=== PATIENT | female | born 1985 | race Caucasian/White ===

== ENCOUNTER 2018-01-04 07:59 | Day surgery (SDC) | payer OTHER ==
[2018-01-04] MEDS ORDERED: SOD CHLORIDE 0.9% 1,000 ML IV (08:00)
[2018-01-04 08:56] LABS: ADD MAN DIFF? NO
[2018-01-04 09:10] LABS: BASOPHILS % 0.1 % (0.0-2.0); EOSINOPHILS # 0.1 10^3/ul (0.0-0.5); EOSINOPHILS % 1.3 % (0.0-7.0); HEMATOCRIT 33.6 % (37.0-47.0); HEMOGLOBIN 11.7 g/dl (12.0-16.0); LYMPHOCYTES # 1.3 10^3/ul (0.8-2.9); LYMPHOCYTES % 18.5 % (15.0-51.0); MEAN CORPUSCULAR HEMOGLOBIN 31.8 pg (29.0-33.0); MEAN CORPUSCULAR HGB CONC 34.8 g/dl (32.0-37.0); MEAN CORPUSCULAR VOLUME 91.3 fl (82.0-101.0); MEAN PLATELET VOLUME 10.2 fl (7.4-10.4); MONOCYTE # 0.5 10^3/ul (0.3-0.9); NEUTROPHILS % 72.8 % (39.0-77.0); PLATELET COUNT 300 10^3/UL (140-415); RED BLOOD COUNT 3.68 10^6/ul (4.20-5.40); RED CELL DISTRIBUTION WIDTH 12.4 % (11.5-14.5)
[2018-01-04 09:10] LABS: WHITE BLOOD COUNT 6.9 10^3/ul (4.8-10.8)
[2018-01-04] MEDS ORDERED: GLYCOPYRROLATE 0.4 MG INJ (09:20)
[2018-01-04] MEDS ORDERED: PROPOFOL 20 ML (09:20)
[2018-01-04] MEDS ORDERED: CEFAZOLIN 1 GM INJ (09:20)
[2018-01-04] MEDS ORDERED: NEOSTIGMINE 3 MG/3 ML SYRINGE (09:20)
[2018-01-04] MEDS ORDERED: ROCURONIUM 50 MG INJ (09:20)
[2018-01-04] MEDS ORDERED: FENTAnyl 50 MCG/ML VIAL (09:21)
[2018-01-04] MEDS ORDERED: ONDANSETRON 4 MG INJ (09:21)
[2018-01-04] MEDS ORDERED: MIDAZOLAM 1 MG/ML 2 ML INJ (09:21)
[2018-01-04] MEDS ORDERED: DEXAMETHASONE 4 MG/ML 1 ML INJ (09:21)
[2018-01-04 09:27] LABS: ANION GAP 12 (8-16); CARBON DIOXIDE 29 mmol/L (21-31); CHLORIDE 108 mmol/L (97-110); GLUCOSE 84 mg/dl (70-220)
[2018-01-04 09:28] LABS: POTASSIUM 4.1 mmol/L (3.5-5.1); SODIUM 145 mmol/L (135-144)
[2018-01-04 09:29] LABS: BLOOD UREA NITROGEN 14 mg/dl (7-20); CALCIUM 9.1 mg/dl (8.4-10.2); CREATININE 0.61 mg/dl (0.44-1.00)
[2018-01-04] MEDS ORDERED: IPRATROPIUM (NEB) 0.5 MG/2.5 ML AMP HHN (09:30)
[2018-01-04] MEDS ORDERED: OXYCODONE/ACETAMINOPHEN (5/325) TAB PO ×2 (09:30)
[2018-01-04] MEDS ORDERED: MEPERIDINE 25 MG INJ IV (09:30)
[2018-01-04] MEDS ORDERED: EPHEDrine SULFATE 50 MG/5 ML SYG IV (09:30)
[2018-01-04] MEDS ORDERED: FENTAnyl 50 MCG/ML VIAL IV ×2 (09:30)
[2018-01-04] MEDS ORDERED: hydrALAzine 20 MG INJ IV (09:30)
[2018-01-04] MEDS ORDERED: TRIMETHOBENZAMIDE 100 MG/ML VIAL IM (09:30)
[2018-01-04] MEDS ORDERED: DIPHENHYDRAMINE 50 MG INJ IV (09:30)
[2018-01-04] MEDS ORDERED: MIDAZOLAM 1 MG/ML 2 ML INJ IV (09:30)
[2018-01-04] MEDS ORDERED: ALBUTEROL 0.083% (NEB) 2.5 MG/3 ML AMP HHN (09:30)
[2018-01-04] MEDS ORDERED: LABETALOL HCL 20MG INJ IV (09:30)
[2018-01-04] MEDS ORDERED: ONDANSETRON 4 MG INJ IV (09:30)
[2018-01-04] MEDS ORDERED: HYDROmorphONE 1 MG/5 ML IV SYRINGE IV ×2 (09:30)
[2018-01-04] MEDS: CEFAZOLIN 2 GM/50 ML (PMX) 50 ML IVPB (09:35)
[2018-01-04 09:37] LABS: INR 1.05; PROTIME 13.8 Sec (11.9-14.9); PT RATIO 1.1
[2018-01-04 09:38] LABS: PARTIAL THROMBOPLASTIN TIME 33.8 Sec (25.0-35.0)
[2018-01-04] MEDS: HYDROmorphONE 1 MG/5 ML IV SYRINGE IV (10:42)
[2018-01-04] MEDS: FENTAnyl 50 MCG/ML VIAL IV (10:42)
== END 2018-01-04 12:10 | disposition home or self-care (01) ==
LOC: SDS 07:59
DX: R59.0 Localized enlarged lymph nodes (principal)
CPT/HCPCS: 38500; 71045; 80048; 85025; 85610; 85730; 87070; 87075; 87102; 87116; 88307; 93005